=== PATIENT | male | born 1955 | race Caucasian/White ===

== ENCOUNTER 2020-01-12 11:57 | Outpatient (CLI) | payer BC ==
--- NOTE | 2020-01-12 12:16 | RAD ---
Exam: XR Knee Lt 3 View HISTORY: Twisted knee getting troches 3 months ago. Injury after twisting knee. COMPARISON: None FINDINGS: There is irregularity along the articular surface of the medial femoral condyle suggestive of an oste ochondral defect. No fracture or dislocation is seen. There is suggestion of a small suprapatellar joint effusion. No other findings. IMPRESSION: Osteochondral defect medial femoral condyle. MRI left knee is recommended for further evaluation.
== END 2020-01-12 11:58 | disposition home or self-care (01) ==
LOC: MADRAD 11:57
PROVIDERS: ATTEND Family Medicine
DX: M25.562 Pain in left knee (principal); M89.9 Disorder of bone, unspecified